=== PATIENT | male | born 1990 | race Caucasian/White ===

== ENCOUNTER 2019-06-23 09:21 | Emergency (ER) | payer OTHER, SELFPAY ==
[2019-06-23 09:27] VITALS: BP 134/76; PULSE 89; RESP 16; TEMP 36.7; O2SAT 99
--- NOTE | 2019-06-23 09:41 | ED.GENADULT ---
HPI - General Adult General Chief complaint: Upper Respiratory Infection Stated complaint: ear pain Time Seen by Provider: 06/23/19 09:43 Source: patient Mode of arrival: ambulatory Limitations: no limitations History of Present Illness HPI narrative: This is a 28 years old male presented office for evaluation of right ear pain since yesterday. Woke up this morning with nasal congestion, headache, cough, and feeling ill. He took children Motrin for his symptoms because that is all he had at home. He smoke a pack a day.Denies sick contact. Related Data Allergies Allergy/AdvReac Type Severity Reaction Status Date / Time No Known Allergies Allergy Unverified 06/02/18 15:44 Review of Systems Review of Systems: Narrative: CONSTITUTIONAL: Denies fever ENT: Reports rhinorrhea, congestion, sore throat, otalgia. CARDIOVASCULAR: Denies chest pain RESPIRATORY: Denies dyspnea, wheezing. Reports cough GASTROINTESTINAL: Denies abdominal pain, nausea, vomiting GENITOURINARY: Denies urinary symptom SKIN: Denies rash MUSCULOSKELETAL: Denies acute back pain, joint pain, or myalgia. NEUROLOGIC: Denies numbness, or focal weakness. [facility] Past Medical History Medical History (Updated 06/23/19 @ 09:51 by ESTEFANY Contreras) Blind right eye Goldenhar syndrome Social History Social History (Updated 06/23/19 @ 09:50 by ESTEFANY Contreras) Smoking packs per day: 1 Smoking cigarettes per day: 20.0 Smoking status: Current every day smoker Comments At time of signature, I agree with nursing past medical, surgical, social and family history. There is no relevant family history pertinent to the presenting complaint. Exam Narrative: Exam Narrative: GENERAL: This is a well-nourished, well-developed patient, in no apparent distress. EYES: Sclera clear/white. Vision is grossly intact. EARS: External ears normal, auditory canals clear and without drainage, right TM noted bulging and erythema. Left TM noted fluid level; without perforation. Hearing grossly intact. NOSE: External nose normal with no obvious nasal discharge, nares without redness, no rhinorrhea. THROAT: Mucous membranes moist, posterior pharynx erythema. NECK: Neck supple, non-tender without lymphadenopathy, masses or thyromegaly. CARDIOVASCULAR: Regular rate and rhythm without murmurs, gallops, or rubs. RESPIRATORY: Clear to auscultation. Breath sounds equal bilaterally. No wheezes, rales, or rhonchi. GASTROINTESTINAL: Abdomen soft, non-tender, nondistended. Bowel sounds are active. No hepato-splenomegaly, or palpable masses. No guarding. SKIN: warm, intact with no suspicious lesions or rash, good texture and turgor. NEURO: awake, alert, and oriented to person, place and time. There were no obvious focal neurologic abnormalities. Steady gait [place] Coma Scale Eye Opening: Spontaneous 4 [place] Coma Scale Motor: Obeys Commands 6 [place] Coma Scale Verbal: Oriented 5 Course Vital Signs Vital signs: Vital Signs Temperature 98.1 F 06/23/19 09:27 Pulse Rate 89 06/23/19 09:27 Respiratory Rate 16 06/23/19 09:27 Blood Pressure 134/76 06/23/19 09:27 Pulse Oximetry 99 06/23/19 09:27 Temperature 98.1 F 06/23/19 09:27 Pulse Rate 89 06/23/19 09:27 Respiratory Rate 16 06/23/19 09:27 Blood Pressure 134/76 06/23/19 09:27 Pulse Oximetry 99 06/23/19 09:27 Medical Decision Making MDM Narrative Medical decision making narrative: Discharge instructions reviewed with patient, as well as provided in writing per nursing staff. The instructions also include specific and strict return/GO TO THE ER as well as f/u information. All questions have been answered, and the patient deny any further questions with discharge and discharge plan. Differential Diagnosis Differential Diagnosis: pneumonia, Allergic Rhinitis, Upper respiratory cough syndrome, Pharyngitis, Sinusitis, Bronchitis, otitis media, viral URI, Asthma/reactive airway disease, i
== END 2019-06-23 10:15 | disposition home or self-care (01) ==
PROVIDERS: Emergency Provider Nurse Practitioner
DX: J06.9 Acute upper respiratory infection, unspecified (principal); H66.001 Acute suppurative otitis media without spontaneous rupture of ear drum, right ear; R05 Cough; F17.200 Nicotine dependence, unspecified, uncomplicated; Q87.0 Congenital malformation syndromes predominantly affecting facial appearance; H54.61 Unqualified visual loss, right eye, normal vision left eye
CPT/HCPCS: 99213; G0463

== ENCOUNTER 2020-06-15 17:42 | Emergency (ER) | payer OTHER, SELFPAY ==
[2020-06-15 17:54] VITALS: BP 154/74; PULSE 62; RESP 16; TEMP 36.3; O2SAT 98
--- NOTE | 2020-06-15 18:13 | ED.NAVMDI ---
HPI - Nausea/Vomiting/Diarrhea General Chief complaint: Nausea/Vomiting/Diarrhea Stated complaint: stomach issues Time Seen by Provider: 06/15/20 18:13 Source: patient and RN notes reviewed Mode of arrival: ambulatory Limitations: no limitations History of Present Illness HPI Narrative: 29 year old male who presents to express care with complaints of having one episode of coffee ground emesis this morning with no further episodes. Patient states that he drank some cola prior to emesis and has had no further emesis, denies any bright red emesis, denies any acute abdominal pain reports some nausea. Patient relays history of 6 back of beer and 2 shots of liquor last evening, states that he did leave work today after emesis and need note to show employer that he went to be examined. Patient states that he is under a lot of stress and did have problems with his stomach when he was younger.Patient is anxious and very talkative. MD elicited complaint: nausea and vomiting Pertinent past history: other (states problems when younger with stomach) Onset (ago): day(s) (this morning) Description of vomiting: coffee grounds Associated nausea: Yes Associated abdominal pain: No Exacerbating factors: alcohol intake Context: alcohol abuse Associated symptoms: nausea/vomiting Treatment prior to arrival: other (luis francis) Related Data Allergies Allergy/AdvReac Type Severity Reaction Status Date / Time No Known Allergies Allergy Verified 06/15/20 18:00 Review of Systems Review of Systems: Narrative: CONSTITUTIONAL: Denies fever, chills, or sweats. EYES: Denies visual changes, redness, or discharge. ENT: Denies rhinorrhea, congestion, sore throat, or otalgia. CARDIOVASCULAR: Denies chest pain, palpitations, or edema. RESPIRATORY: Denies cough or dyspnea. GASTROINTESTINAL: Denies abdominal pain,positive for nausea, one episode of vomiting, denies diarrhea. GENITOURINARY: Denies dysuria or hematuria. SKIN: Denies rash or itching. MUSCULOSKELETAL: Denies back pain, joint pain, or myalgia. NEUROLOGIC: Denies headache, numbness, or weakness. PSYCHIATRIC: Positive anxiety or depression. All systems reviewed & are unremarkable except as noted in HPI and below PMFSH Past Medical History Medical History (Updated 06/17/20 @ 12:02 by Kiara Houston NP) Anxiety Blind right eye Goldenhar syndrome Social History Social History (Updated 06/17/20 @ 12:02 by Kiara Houston NP) Smoking packs per day: 1 Smoking cigarettes per day: 20.0 Years smoked: 15 Smoking pack-years: 15.00 Smoking status: Current every day smoker Alcohol intake: current Substance use: unknown Living arrangements: with family Gender identity (if verbalized by the patient): Male Comments At time of signature, agree with nursing past medical, surgical, social and family history. There is no relevant family history pertinent to the presenting complaint Exam Narrative: Exam Narrative: GENERAL: Well-appearing, well-nourished, and in no acute distress. HEAD: Normocephalic, atraumatic. EYES: PERRLA and EOMI. ENT: Nares clear, no rhinorrhea or epistaxis. Mucous membranes moist.TM's normal with good light reflex, throat pink with no exudates or lesions no tonsil enlargement NECK: Supple.no lymphadenopathy CHEST: Clear to auscultation. No respiratory distress.SAO2 98% on room air HEART: Regular rate and rhythm. No murmur heard. Normal peripheral pulses. ABDOMEN: Soft, nontender to palpation, nondistended, normal active bowel sounds.reports normal BM today EXTREMITIES: Normal range of motion. No edema. SKIN: Warm, dry, no rash. NEURO: No focal deficits. Alert and oriented x3.anxious Course Vital Signs Vital signs: Vital Signs Temperature 36.3 C L 06/15/20 17:54 Pulse Rate 62 06/15/20 17:54 Respiratory Rate 16 06/15/20 17:54 Blood Pressure 154/74 H 06/15/20 17:54 Pulse Oximetry 98 06/15/20 17:54 Temperature 36.3 C L 06/15/20 17:54 Pulse Rat
== END 2020-06-15 18:38 | disposition home or self-care (01) ==
PROVIDERS: Emergency Provider Registered Nurse; PCP Family Medicine
DX: K29.00 Acute gastritis without bleeding (principal); H54.40 Blindness, one eye, unspecified eye; F17.210 Nicotine dependence, cigarettes, uncomplicated; Q87.0 Congenital malformation syndromes predominantly affecting facial appearance
CPT/HCPCS: 99213; G0463

== ENCOUNTER 2020-12-03 18:54 | Emergency (ER) | payer OTHER, SELFPAY ==
--- NOTE | 2020-12-03 19:08 | ED.SKABFB ---
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 States he has been working out for 3 to 4 weeks worse this last week to the point where his fingers feel swollen and hurts to bend his hands. 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 EYES: Denies visual changes, redness, discharge. ENT: Denies rhinorrhea, congestion, sore throat, otalgia. CARDIOVASCULAR: Denies chest pain, palpitations, edema. RESPIRATORY: Denies dyspnea, wheezing, cough GASTROINTESTINAL: Denies abdominal pain, nausea, vomiting, diarrhea. GENITOURINARY: Denies dysuria, hematuria, abnormal discharge SKIN: Patient has rash all over his legs and arms and in the joints but some around his waistband he has nothing on his face NEUROLOGIC: Denies numbness, or focal weakness. PSYCHIATRIC: Denies anxiety or depression. [facility] Past Medical History Medical History Anxiety Blind right eye Goldenhar syndrome Social History Social History Smoking packs per day: 1 Smoking cigarettes per day: 20.0 Years smoked: 15 Smoking pack-years: 15.00 Smoking status: Current every day smoker Alcohol intake: current Substance use: unknown Gender identity (if verbalized by the patient): Male Comments At time of signature, I agree with nursing past medical, surgical, social and family history. There is no relevant family history pertinent to the presenting complaint. Blood pressure is high at this visit and he was referred to primary care via our referral sheet Exam Narrative: Exam Narrative: GENERAL: This is a well-nourished, well-developed patient, in mild distress. HEAD: normocephalic, atraumatic. EYES: Sclera clear/white. Vision is grossly intact. EARS: External ears normal, . Hearing grossly intact. NOSE: External nose normal without nasal discharge, nares without redness, no rhinorrhea. THROAT: Mucous membranes moist, NECK: Neck supple, CARDIOVASCULAR: Regular rate and rhythm without murmurs, gallops, or rubs. RESPIRATORY: Clear to auscultation. Breath sounds equal bilaterally. No wheezes, rales, or rhonchi. GASTROINTESTINAL: Abdomen soft, SKIN: warm, intact with n papular rash waist upper chest down back low back legs from knee to lower extremity and forearms to hands including fingers he also has clustered coalesced rash red rash at elbows and back and knees; states his hands are painful NEURO: awake, alert, and oriented to person, place and time. There were no obvious focal neurologic abnormalities. Steady gait EXTREMITIES: Normal range of motion. BACK: Nontender without deformity Course Course Emergency Course: Patient comes to [facility] with no primary care with rash on arms legs and on joints He was given a sheet of referrals for primary care as his blood pressure is elevated tonight he says that this is not the first time that his blood pressures been high Vital Signs Vital signs: Vital Signs Temperature 98.8 F 12/03/20 19:10 Pulse Rate 58 L 12/03/20 19:10 Respiratory Rate 18 12/03/20 19:10 Blood Pressure 143/78 H 12/03/20 19:10 Pulse Oximetry 99 12/03/20 19:10 Temperature 98.8 F 12/03/20 19:10 Pulse Rate
[2020-12-03 19:10] VITALS: BP 143/78; PULSE 58; RESP 18; TEMP 37.1; O2SAT 99
[2020-12-03] MEDS: predniSONE 20 MG TABLET 60 MG PO (20:18)
== END 2020-12-03 20:20 | disposition home or self-care (01) ==
PROVIDERS: Emergency Provider Nurse Practitioner; PCP Family Medicine
DX: L20.82 Flexural eczema (principal); L23.9 Allergic contact dermatitis, unspecified cause; F17.210 Nicotine dependence, cigarettes, uncomplicated; Q87.0 Congenital malformation syndromes predominantly affecting facial appearance; H54.40 Blindness, one eye, unspecified eye
CPT/HCPCS: 99213; G0463; J7512